=== PATIENT | female | born 2000 | race Caucasian/White ===

== ENCOUNTER 2020-01-01 11:13 | Emergency (ER) | payer OTHER ==
--- NOTE | 2020-01-01 16:19 | Emergency Department Report ---
- General Chief Complaint: Medical Clearance Stated Complaint: TOLD SCHOOL SHE HAD THE VIRUS Time Seen by Provider: 01/01/20 16:08 Source: patient, family Mode of arrival: Ambulatory Limitations: No Limitations - History of Present Illness Initial Comments: 19-year-old patient presents for rule out of coronavirus. Patient states she was sent by her school due to coughing today. Patient states she has had a mild cough that is relieved with Dimetapp for the past 2 or 3 days. She denies any hemoptysis, mucus production, shortness of breath, chest pain, fever/chills/sweats/body aches, nausea/vomiting/diarrhea, rhinorrhea/congestion, abdominal pain, leg pain/swelling, recent travel outside of the country within the past 30 days, or known contacts with anyone who has traveled outside the country or had symptoms of cough/fever/shortness of breath. -: Sudden - Related Data Allergies Allergy/AdvReac Type Severity Reaction Status Date / Time No Known Allergies Allergy Unverified 01/01/20 11:22 ED Review of Systems ROS: Stated complaint: TOLD SCHOOL SHE HAD THE VIRUS Other details as noted in HPI Constitutional: denies: chills, diaphoresis, fever, malaise, weakness ENT: denies: throat pain Respiratory: cough. denies: orthopnea, shortness of breath Cardiovascular: denies: chest pain, palpitations, edema, syncope Endocrine: denies: excessive sweating Gastrointestinal: denies: abdominal pain, nausea, vomiting, diarrhea Musculoskeletal: denies: back pain, myalgia Neurological: denies: headache, weakness Hematological/Lymphatic: denies: swollen glands ED Past Medical Hx - Past Medical History Previous Medical History?: No - Surgical History Past Surgical History?: No - Social History Smoking Status: Never Smoker Substance Use Type: None ED Physical Exam - General Limitations: No Limitations General appearance: alert, in no apparent distress - Head Head exam: Present: atraumatic, normocephalic - Eye Eye exam: Present: normal appearance - ENT ENT exam: Present: mucous membranes moist - Neck Neck exam: Present: normal inspection - Respiratory Respiratory exam: Present: normal lung sounds bilaterally. Absent: respiratory distress, wheezes, rales, rhonchi, stridor, chest wall tenderness, accessory muscle use, decreased breath sounds - Cardiovascular Cardiovascular Exam: Present: regular rate, normal rhythm. Absent: systolic murmur, diastolic murmur, rubs, gallop - GI/Abdominal GI/Abdominal exam: Present: soft, normal bowel sounds. Absent: distended, tenderness - Extremities Exam Extremities exam: Present: normal inspection. Absent: calf tenderness (No swelling or tenderness noted) - Neurological Exam Neurological exam: Present: alert, oriented X3 - Psychiatric Psychiatric exam: Present: normal affect, normal mood - Skin Skin exam: Present: warm, dry, intact, normal color. Absent: rash, cyanosis, diaphoretic, erythema, petechiae, ecchymosis ED Course Vital Signs 01/01/20 11:25 Temperature 98 F Pulse Rate 99 H Respiratory 16 Rate Blood Pressure 135/93 O2 Sat by Pulse 97 Oximetry ED Medical Decision Making - Medical Decision Making 19-year-old patient sent here by her high school to rule out the coronavirus. Patient has had a cough for the past 2 or 3 days that is nonproductive. She denies any fever or shortness of breath, travel outside the [place]/contact with individuals with recent travel outside the [place], or sick contacts. She is well- appearing. Her lungs are clear. Patient states her symptoms are relieved with Dimetapp, recommend continued use of this with addition of [id number] loratadine daily. Symptoms are likely due to cold virus or allergic rhinitis. 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 Discussed very strict return precautions including development of shortness of breath, hemoptysis, fever of 100 F or more, or any new concerns, patient verbalizes understanding. Critical care attestation.: If time is entered above; I have spent that time in minutes in the direct care of this critically ill patient, excluding procedure time. ED Disposition Clinical Impression: Cough Disposition: DC-01 TO HOME OR SELFCARE Is pt being admited?: No Condition: Stable Instructions: Cold Symptoms (ED) Additional Instructions: I recommend you try [id number] loratadine (Claritin) daily and continue taking Dimetapp as needed for the cough. If you do develop any body aches, chills, fever, shortness of breath or other new concerning symptoms, please return immediately to the emergency department. Referrals: PRIMARY CARE,MD [Primary Care Provider] - as needed Forms: Work/School Release Form(ED)
[2020-01-01 16:40] VITALS: BP 128/70
== END 2020-01-01 16:39 | disposition home or self-care (01) ==
LOC: ED 11:13
DX: R05 Cough (principal)
CPT/HCPCS: 99282